=== PATIENT | male | born 1950 | race Caucasian/White ===

== ENCOUNTER 2025-01-26 23:13 | Inpatient (IN) | payer MEDICARE, OTHER, SELFPAY ==
[2025-01-26 21:09] VITALS: BP 148/72
[2025-01-26 21:23] VITALS: BP 132/70
[2025-01-26 21:24] VITALS: BMI 31.6
[2025-01-26 21:32] LABS: Hematocrit 35.0 % (39.0-52.0); Hemoglobin 13.0 g/dL (13.0-18.0); Mean Corp Hgb Conc. 37.1 g/dL (33.0-37.0); Mean Corpuscular Volume 82.7 fL (80.0-94.0); Nucleated Red Blood Cells % 0 % (-); Platelet Count 331 10^3/uL (130-400); Red Cell Dist. Width 12.0 % (11.5-14.5)
[2025-01-26 21:34] LABS: Urine Character Clear (Clear)
--- NOTE | 2025-01-26 21:35 | ED.GENMED ---
History of Present Illness
<UTE Hauser - Last Filed: 01/26/25 23:24>
General
Chief Complaint: Change in Mental Status
Source: patient
Exam Limitations: none
Time Seen by Provider: 01/26/25 21:25
Nursing documentation reviewed up to this point in time: agreed with
History of Present Illness
History of Present Illness:
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 reports patient fell asleep at 7:50 PM woke up at 8 PM very confused and
had difficulty getting his words out. She reported that his speech was clear and he is aware that he is confused. Patient presents awake alert speech is clear he tells me he feels confused and is having difficulty answering questions. He denies
any upper or lower extremity weakness. He has no focal weakness on exam. He denies any headache. He is on his third round of immunotherapy his last immunotherapy treatment was on Tuesday (4 d ago) and also had a 'sodium infusion' as his sodium
was low .
reports he had an MRI of his brain which was negative for metastasis
Phy Exam
<UTE Hauser - Last Filed: 01/26/25 23:24>
General Physical Exam
General Presentation: no apparent distress
General age: appears stated age
General Skin: warm and dry
General Habitus: normal
General Mental: alert
General Hydration: appears well hydrated
Cardiovascular Exam
Cardiovascular Exam: regular rate/rhythm, no murmur and normal peripheral pulses
Pulmonary Exam
Pulmonary Exam: lungs clear and no respiratory distress
Neurological Exam
Neurological Exam: alert and other (Confused no focal upper or lower extremity weakness)
Edd Coma Scale
Eye Opening: Spontaneous
Verbal Response: Confused
Motor Response: Obeys Commands
GCS Total Score: 14
Cerebellar
Cerebellar Function: normal finger to nose
Musculoskeletal Exam
Musculoskeletal Exam: full ROM
Skin Exam
Skin Exam: normal color and warm/dry
Psychiatric Exam
Psychiatric Exam: normal mood/affect
Course
<UTE Hauser - Last Filed: 01/26/25 23:24>
Orders/Labs/Results
Orders:
Orders
01/26/25 21:25
Bedside Glucose- Treatment ONCE
Cardiac Monitoring- Treatment ONCE
Complete Blood Count/With Diff Urgent
Comprehensive Metabolic Panel Urgent
Osmolality, Random Urine Urgent
Date Specimen was Collected: 01/26/25
Time Specimen was Collected: 21:23
Comment: ADD ON
Serum Osmolality Urgent
Comment: ADD ON
Urinalysis Reflex To Culture Urgent
Date Specimen was Collected: 01/26/25
Time Specimen was Collected: 21:23
Urine Sodium Urgent
Date Specimen was Collected: 01/26/25
Time Specimen was Collected: 21:23
Comment: ADD ON
01/26/25 21:26
CT BRAIN PERF STROKE ALERT Urgent
Comment:
Reason For Exam: confusion
CT HEAD STROKE ALERT W/o Cont Urgent
Comment:
Reason For Exam: confusion
CT HEAD/NECK ANG STROKE ALERT Urgent
Comment:
Reason For Exam: confusion
01/26/25 21:57
Troponin I Urgent
01/26/25 22:07
Add On- LAB Urgent
Tests Added?: serum osmolality
Add On- LAB Urgent
Tests Added?: urine sodium and urine osmolality
01/26/25 22:50
Admit/Transfer Patient As Directed
Co-Sign Provider:
Level of Care: Inpatient admission
Assign to:: Telemetry
Physician / Group: kyung
Diagnosis: hyponatremia
Reason for Telemetry: Arrhythmia
Date to Stop Telemetry: 01/29/25
Time to Stop Telemetry: 11:00
Reason for Hospitalization: hyponatremia
Expected length of stay greater than two midnights?: Yes
ELOS- Estimated Length of Stay in days: 2
I certify the patient meets the requirements for IP care: Yes
Code Status As Directed
Resuscitation Status: Full Code
PRN Pain Medication Management As Directed
May give lesser potent ordered pain med per pt: Yes
preference::
Protocol:: Medication orders for pain may be administered in a
manner that supports deferring to patient preference
when the pt is:
- Requesting an ordered lesser potent pain medication.
Least to most potent pain medications are defined
as: acetaminophen < NSAID < tramadol < opioids
(morphine, oxycodone, hydromorphone).
- Requesting a lesser dose of the same medication IF
ORDERED.
- Requesting a less intrusive route of administration
if both routes are prescribed by the provider (PO <
IV).
01/26/25 23:00
3% Sodium Chloride 250 ml [Sodium Chloride 3%] 250 ml IV ONCE
01/26/25 23:07
Acetaminophen [Tylenol] 650 mg PO NOW STA
01/29/25 11:00
DC Protocol for Telemetry ONCE
Abnormal Lab Results
01/26/25 01/26/25
21:25 22:01
RBC 4.23 L 10^6/uL
(4.70-6.10)
Hct 35.0 L %
(39.0-52.0)
MCHC 37.1 H g/dL
(33.0-37.0)
Absolute Monos (auto) 0.7 H 10^3/uL
(0.1-0.6)
Lymphocytes % 16.1 L %
(20.5-51.1)
Sodium 118 L* mmol/L
(135-145)
Chloride 87 L mmol/L
(98-107)
Creatinine 0.6 L mg/dL
(0.7-1.3)
Glucose 111 H mg/dl
(70-99)
Serum Osmolality 246 L mOsm/kg
(275-300)
POC Glucose 111 H mg/dl
(70-99)
01/26/25 21:25
01/26/25 21:25
Vital Signs
Initial and Last Documented VS:
Initial Vital Signs
Temp Pulse Resp BP Pulse Ox
98 F 89 20 148/72 97
01/26/25 21:09 01/26/25 21:09 01/26/25 21:09 01/26/25 21:09 01/26/25 21:09
Last Documented Vital Signs
Temp Pulse Resp BP Pulse Ox
98 F 99 16 132/70 95
01/26/25 21:09 01/26/25 22:30 01/26/25 22:30 01/26/25 21:23 01/26/25 22:30
Regional Production Manager consulted with Physician
Regional Production Manager consulted with physician?: Yes
Name of Physician Consulted: DR Patino
<Norman Spencer, DO - Last Filed: 01/26/25 22:09>
Orders/Labs/Results
Orders:
Orders
01/26/25 21:25
Bedside Glucose- Treatment ONCE
Cardiac Monitoring- Treatment ONCE
Complete Blood Count/With Diff Urgent
Comprehensive Metabolic Panel Urgent
Osmolality, Random Urine Urgent
Date Specimen was Collected: 01/26/25
Time Specimen was Collected: 21:23
Comment: ADD ON
Serum Osmolality Urgent
Comment: ADD ON
Urinalysis Reflex To Culture Urgent
Date Specimen was Collected: 01/26/25
Time Specimen was Collected: 21:23
Urine Sodium Urgent
Date Specimen was Collected: 01/26/25
Time Specimen was Collected: 21:23
Comment: ADD ON
01/26/25 21:26
CT BRAIN PERF STROKE ALERT Urgent
Comment:
Reason For Exam: confusion
CT HEAD STROKE ALERT W/o Cont Urgent
Comment:
Reason For Exam: confusion
CT HEAD/NECK ANG STROKE ALERT Urgent
Comment:
Reason For Exam: confusion
01/26/25 21:57
Troponin I Urgent
01/26/25 22:07
Add On- LAB Urgent
Tests Added?: serum osmolality
Add On- LAB Urgent
Tests Added?: urine sodium and urine osmolality
01/26/25 22:50
Admit/Transfer Patient As Directed
Co-Sign Provider:
Level of Care: Inpatient admission
Assign to:: Telemetry
Physician / Group: kyung
Diagnosis: hyponatremia
Reason for Telemetry: Arrhythmia
Date to Stop Telemetry: 01/29/25
Time to Stop Telemetry: 11:00
Reason for Hospitalization: hyponatremia
Expected length of stay greater than two midnights?: Yes
ELOS- Estimated Length of Stay in days: 2
I certify the patient meets the requirements for IP care: Yes
Code Status As Directed
Resuscitation Status: Full Code
PRN Pain Medication Management As Directed
May give lesser potent ordered pain med per pt: Yes
preference::
Protocol:: Medication orders for pain may be administered in a
manner that supports deferring to patient preference
when the pt is:
- Requesting an ordered lesser potent pain medication.
Least to most potent pain medications are defined
as: acetaminophen < NSAID < tramadol < opioids
(morphine, oxycodone, hydromorphone).
- Requesting a lesser dose of the same medication IF
ORDERED.
- Requesting a less intrusive route of administration
if both routes are prescribed by the provider (PO <
IV).
01/26/25 23:00
3% Sodium Chloride 250 ml [Sodium Chloride 3%] 250 ml IV ONCE
01/26/25 23:07
Acetaminophen [Tylenol] 650 mg PO NOW STA
01/29/25 11:00
DC Protocol for Telemetry ONCE
Abnormal Lab Results
01/26/25 01/26/25
21: 22:01
RBC 4.23 L 10^6/uL
(4.70-6.10)
Hct 35.0 L %
(39.0-52.0)
MCHC 37.1 H g/dL
(33.0-37.0)
Absolute Monos (auto) 0.7 H 10^3/uL
(0.1-0.6)
Lymphocytes % 16.1 L %
(20.5-51.1)
Sodium 118 L* mmol/L
(135-145)
Chloride 87 L mmol/L
(98-107)
Creatinine 0.6 L mg/dL
(0.7-1.3)
Glucose 111 H mg/dl
(70-99)
Serum Osmolality 246 L mOsm/kg
(275-300)
POC Glucose 111 H mg/dl
(70-99)
01/26/25 21:25
01/26/25 21:25
Vital Signs
Initial and Last Documented VS:
Initial Vital Signs
Temp Pulse Resp BP Pulse Ox
98 F 89 20 148/72 97
01/26/25 21:09 01/26/25 21:09 01/26/25 21:09 01/26/25 21:09 01/26/25 21:09
Last Documented Vital Signs
Temp Pulse Resp BP Pulse Ox
98 F 99 16 132/70 95
01/26/25 21:09 01/26/25 22:30 01/26/25 22:30 01/26/25 21:23 01/26/25 22:30
<UTE Hauser - Last Filed: 01/26/25 23:24>
MDM/Problems Addressed
Differential Diagnosis Includes:
Not limited to stroke, infection, acute electrolyte abnormality
MDM/Problems Addressed:
Patient's document is a 74-year-old male with metastatic melanoma presents for acute confusion which started at 8 PM. Patient took a brief nap for about 10 minutes and when he woke up reports patient seemed to have difficulty getting his words
out. She reports he seemed like he knew what he wanted to say but could not say the words. He did present to the ER awake alert with clear speech however was confused. He was not able to identify certain pictures. He was aware however that he
was confused. He was able to follow commands
2155: pt back from CT scan. on re-exam patient seems more improved. Seems less confused however still confused to month. He still has no other focal deficits.
Sodium found to be low at 118. does report on Tuesday his sodium was apparently low and after immunotherapy he received' a bag for low sodium.' Case discussed with nephrology who does recommend hypertonic saline. Urine osmolality and urine
sodium added in addition to serum osmolality.
Patient radiology reported CT head and vessels are negative for acute findings questionable left apical pneumonia however patient has no symptoms.
Patient will require mission to the hospitalist.
Chronic conditions affecting care:
Metastatic melanoma
<UTE Hauser - Last Filed: 01/26/25 23:24>
*Radiology
Radiology exam reviewed: radiology read reviewed
*Pulse Oximetry
SaO2: 97
Oxygen Mode of Delivery: Room air
Patient hypoxic: no
*EKG
Interpreted by ED Provider?: Yes
Interpretation: normal
Comparison EKG: no comparison EKG present
Heart Rate: 93
Ischemia: no ischemia
<Normanvasu Gatica Johanna DO - Last Filed: 01/26/25 22:09>
*Pulse Oximetry
Patient hypoxic: no
*Critical Care Note
Total Time (30-74mins, 75-104mins- exclusive of procedures): 38min
comment:
The patient was seen initially as a concern for stroke alert. He does have a history of melanoma. However he ultimately was found to have a sodium of only 118. Emergently discussing case with nephrology. Patient likely will need to be fluid
restricted. However, additional labs still pending. Lower suspicion for true neurologic event.
<UTE Hauser - Last Filed: 01/26/25 23:24>
Patient Management
Discussion with other providers: Railroad Conductor (Nephrology)
ED Attending Note
<UTE Hauser - Last Filed: 01/26/25 23:24>
-
Portions of this chart may have been created with voice recognition software.� Occasional wrong word or��sound alike� substitutions may have occurred due to the inherent limitations of voice recognition software.
<Norman Spencer DO - Last Filed: 01/26/25 22:09>
ED Attending Note
ED Attending Note:
I evaluated patient at bedside. He could not name the month but he knew his age. He describes some mild aphasia earlier but overall states he is improved significantly. CT head personally reviewed and I see no evidence of metastatic.
Discharge Plan
Departure
Patient Disposition: Admit
Date of Disposition: 01/26/25
Time of Disposition: 22:20
Admit to: Telemetry
Admit to doctor: hospitalist
Presentation/result/management discussed w/ accepting MD/DO: Hospitalist
Patient with high blood pressure during this ER visit?: Yes
Condition: Fair
Covid-19: Not Applicable
Discharge Problem:
Acute confusion, Acute hyponatremia
Interventions
Interventions:
*Risk Screen - Suicide Last Done: 01/26/25 22:37
*General Assessment Last Done: 01/26/25 21:16
*Neglect/Abuse Screening Last Done: 01/26/25 21:16
*ED- Fall Risk Assessment Last Done: 01/26/25 21:16
*ED COVID-19 Vaccine History Last Done: 01/26/25 21:16
ED- Pulmonary Assessment Last Done: 01/26/25 21:10
ED- Neurological Assessment Last Done: 01/26/25 22:24
ED- Cardiac Assessment Last Done: 01/26/25 21:10
[2025-01-26 22:02] LABS: Glucose - Point of Care 111 mg/dl (70-99)
[2025-01-26 22:04] LABS: ALT (SGPT) 36 U/L (0-50); AST (SGOT) 33 U/L (17-59); Albumin 3.8 g/dl (3.5-5.0); Alkaline Phosphatase 123 U/L (38-126); Blood Urea Nitrogen 12 mg/dl (9-20); Calcium 8.6 mg/dl (8.4-10.2); Carbon Dioxide 26 mmol/L (22-30); Chloride 87 mmol/L (98-107); Estimated Creatinine Clearance 120 ml/min; Glucose 111 mg/dl (70-99); Potassium 4.3 mmol/L (3.5-5.1); Sodium 118 mmol/L (135-145); Total Protein 6.6 g/dl (6.3-8.2); eGFR > 60.00
[2025-01-26] MEDS: SODIUM CHLORIDE 3% 250 IV (22:43)
[2025-01-26 22:52] LABS: Troponin I < 0.012 ng/ml
[2025-01-26 23:00] VITALS: BP 127/68
--- NOTE | 2025-01-26 23:03 | HPS.HSE ---
Family Physician
-
Family Physician: Matias Hinton
Chief Complaint
-
confusion
History of Present Illness
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
anxiety/depression, hyperlipidemia, glaucoma presenting for confusion. As per patient fell asleep at 7:50 PM and woke up at 8 PM very confused and had difficulty getting his words out. She reported his speech was clear and he was aware that
he was confused. Patient presents awake alert with clear speech and feels confused and is having difficulty answering questions. Denies upper or lower extremity weakness. No headache. No blurry vision. No numbness or tingling or focal weakness
or dizziness. He is having increased urinary frequency today.
He does not drink fluids excessively. Perhaps 16 ounce water bottle per day. His oral intake has been quite low recently.
He had some diarrhea today which is resolved after taking Imodium. No abdominal pain.
No chest pain or shortness of breath.
His last immunotherapy treatment was 4 days ago. He was found to have hyponatremia at that time with sodium of 125 and received 'sodium infusion' due to hyponatremia. He did not have sodium checked afterwards.
states that he had an MRI of the brain which was negative for metastases.
He drinks 1 or 2 glasses of wine per day. Denies smoking.
No pertinent family history.
Medical History
Past Medical History
Past Medical History: Reports Other (metastatic melanoma with metastasis to heart, stomach and lungs status post mediastinal lymph node resection on immunotherapy Opdivo and Yervoy, thyroid cancer status post thyroid resection, hypertension,
anxiety/depression, hyperlipidemia, glaucoma)
Past Surgical History: Reports None
Social History
Tobacco: Non-smoker
Alcohol: Occasional
Drug: None
Family History
Family History: Not pertinent
Allergies / Home Medications
Allergies reflects when Allergies were last updated in [employer].
Home Medications with original date entered in [employer]
Allergy/Medication List:
Allergies
Allergy/AdvReac Type Severity Reaction Status Date / Time
No Allergy Information Allergy Verified 01/26/25 22:43
Available
Home Medications
amlodipine 5 mg tablet 5 mg PO DAILY 01/26/25
atorvastatin 20 mg tablet 20 mg PO DAILY 01/26/25
clonazepam 1 mg tablet 1 mg PO BID PRN anxiety 01/26/25
latanoprost 0.005 % eye drops 1 drp ophthalmic (eye) DAILY 01/26/25
levothyroxine 137 mcg/mL oral solution 137 mcg PO DAILY 01/26/25
mometasone 0.1 % topical cream 1 applic topical BID 01/26/25
ondansetron 4 mg disintegrating tablet 4 mg PO Q8H PRN nausea 01/26/25
trazodone 50 mg tablet 50 mg PO HS 01/26/25
Review of Systems
-
History Source: Patient
A 12 point ROS was completed and negative except as noted: Yes
Constitutional: Reports No Symptoms
EENT: Reports No Symptoms
Respiratory: Reports No Symptoms
Cardiac: Reports No Symptoms
Abdomen/GI: Reports No Symptoms
: Reports No Symptoms
Musculoskeletal: Reports No Symptoms
Skin: Reports No Symptoms
Neurological: Reports No Symptoms
Endocrine: Reports No Symptoms
Hematologic/Lymphatic: Reports No Symptoms
Psych: Reports No Symptoms
Physical Exam
Vital Signs
Vital Signs
Temp Pulse Resp BP Pulse Ox
98 F 99 16 132/70 95
01/26/25 21:09 01/26/25 22:30 01/26/25 22:30 01/26/25 21:23 01/26/25 22:30
Physical Exam
General: Well Developed, Well Nourished and No Apparent Distress
HEENT: NormoCephalic, Moist mucous membranes and Atraumatic
Respiratory: Clear
Cardiac: S1/S2 and Regular Rhythm; No Murmur or Rub
GI: Soft, Non Tender, Non Distended and Normal Bowel Sounds; No Organomegaly
Rectal: Deferred by Provider
Musculoskeletal: No Clubbing, No Cyanosis and No Edema
Skin: No Rash
Neuro: Nonfocal/grossly intact
Laboratory Results
-
01/26/25 21:25
01/26/25 21:25
Laboratory Results
Total Bilirubin 0.6 mg/dl (0.2-1.3) 01/26/25 21:25
AST 33 U/L (17-59) 01/26/25 21:25
ALT 36 U/L (0-50) 01/26/25 21:25
Alkaline Phosphatase 123 U/L (38-126) 01/26/25 21:25
Troponin I < 0.012 ng/ml 01/26/25 21:57
Data Reviewed
-
Lab Data: Labs Reviewed by me
Old Records: Reviewed
Impression/Plan
-
IMPRESSION:
PLAN:
# Worsening symptomatic hyponatremia etiology could be multifactorial secondary to Opdivo/Yervoy, decreased solute intake, SIADH from malignancy
-Mental status currently significantly improved, no focal neurological deficits
- Sodium 118, was 125 four days prior before he received normal saline suggesting SIADH
-CT head and CTA head and neck without any abnormalities as per [facility]
- Urine sodium of 38, urine osmolality of 386
-40 ounce fluid restriction
- Nephrology consulted recommended hypertonic saline, recheck BMP in 4 hours
- Check TSH, a.m. cortisol, uric acid
# Left upper lobe consolidation, mild surrounding groundglass opacities in left upper lobe
- As seen on [facility] radiology report, not correlating clinically
Metastatic melanoma with metastasis to heart, stomach and lung status post mediastinal lymph node resection
- On immunotherapy with Opdivo and Yervoy
Essential hypertension
- Continue amlodipine
Hyperlipidemia
- Continue statin
Thyroid cancer status post thyroid resection
- Continue levothyroxine
Anxiety/depression
- Continue clonazepam, trazodone
Elevated intraocular pressure
- Continue latanoprost
Full code
DVT prophylaxis�heparin
Regular diet
[2025-01-26] MEDS: TYLENOL 650 MG PO (23:22)
[2025-01-27] VITALS (8 sets, daily range): BP systolic 112–143; BP diastolic 64–74; BMI 30.6
[2025-01-27] MEDS: SYNTHROID 137 MCG PO (05:21)
[2025-01-27] MEDS: TYLENOL 650 MG PO (05:21)
[2025-01-27 05:54] LABS: Hematocrit 30.6 % (39.0-52.0); Hemoglobin 11.3 g/dL (13.0-18.0); Mean Corp Hgb Conc. 36.9 g/dL (33.0-37.0); Mean Corpuscular Volume 84.1 fL (80.0-94.0); Nucleated Red Blood Cells % 0 % (-); Platelet Count 312 10^3/uL (130-400); Red Cell Dist. Width 11.7 % (11.5-14.5)
[2025-01-27 06:28] LABS: ALT (SGPT) 27 U/L (0-50); AST (SGOT) 27 U/L (17-59); Albumin 3.1 g/dl (3.5-5.0); Alkaline Phosphatase 114 U/L (38-126); Blood Urea Nitrogen 8 mg/dl (9-20); Calcium 7.8 mg/dl (8.4-10.2); Carbon Dioxide 23 mmol/L (22-30); Chloride 92 mmol/L (98-107); Estimated Creatinine Clearance 118 ml/min; Glucose 94 mg/dl (70-99); Potassium 4.2 mmol/L (3.5-5.1); Sodium 119 mmol/L (135-145); Total Protein 5.5 g/dl (6.3-8.2); Uric Acid 2.8 mg/dl (3.5-8.5); eGFR > 60.00
[2025-01-27 06:52] LABS: Cortisol, Random 0.4 ug/dl
--- NOTE | 2025-01-27 08:05 | W.PN.HOSP.TC ---
Today's Communication/Plan
-
Monitor BMP.
Monitor mental status.
Assessment / Plan
Assessment / Plan
Impression:
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 Found to
have hyponatremia with�sodium of 118 seen by nephro nephrology. CT head was concerning of brain mass,�patient had MRI brain at [facility] on 12/13 which shows no brain mets obtained MRI brain with and without contrast showed Enhancing mass within the
lateral right orbit, arising in the region of the lateral rectus. This is suspicious for intraorbital metastatic lesion. This is however nonspecific, and other causes for intraorbital masses are considered, such as hemangioma. Comparison to any
obtainable previous examinations is advised.
Assessment/plan:
Acute metabolic encephalopathy.
Patient presented with confusion.
Possible secondary to hyponatremia.
CT head shows Enhancing mass within the lateral aspect of the right orbit, arising in the region of the lateral rectus muscle. In the clinical history, metastatic disease would be a consideration. This finding is however nonspecific, and other
causes for intraorbital mass such as hemangioma are also possible. If a previous imaging examinations including the orbits can be obtained, comparison would be helpful
patient had MRI brain at [facility] on 12/13 which shows no brain mets.
MRI brain with and without contrast showed Enhancing mass within the lateral right orbit, arising in the region of the lateral rectus. This is suspicious for intraorbital metastatic lesion. This is however nonspecific, and other causes for
intraorbital masses are considered, such as hemangioma. Comparison to any obtainable previous examinations is advised.
- Discussed in detail with radiology, discussed with patient and at bedside, images need to be compared to previous MRI on December 13, will be provided with CD with MRI images and follow-up with oncology at [facility] for
further recommendations.
Symptomatic hyponatremia
etiology could be multifactorial secondary to Opdivo/Yervoy, decreased solute intake, SIADH from malignancy
-Mental status currently significantly improved, no focal neurological deficits
- Sodium 118, on presentation.
Appreciate nephrology input.
BMP every 6 hours
Left upper lobe consolidation, mild surrounding groundglass opacities in left upper lobe
- As seen on [facility] radiology report, not correlating clinically
Metastatic melanoma with metastasis to heart, stomach and lung status post mediastinal lymph node resection
- On immunotherapy with Opdivo and Yervoy
Essential hypertension
- Continue amlodipine
Hyperlipidemia
- Continue statin
Thyroid cancer status post thyroid resection
- Continue levothyroxine
Anxiety/depression
- Continue clonazepam, trazodone
Elevated intraocular pressure
- Continue latanoprost
CODE STATUS: Full code
DVT prophylaxis: SCDs
Diet: Regular diet
Family communication: Discussed with at bedside
Disposition: Continue to monitor BMP.
Total time spent on today's encounter was 65 minutes which included time spent in counseling the patient/family regarding diagnosis and treatment plan as listed above, goals of care, and symptom management. Case was discussed with nursing staff,
specialists, and care coordinators/case management. All labs and imaging personally reviewed by me. Remainder the time spent in detailed review of previous records, lab data, imaging, and other medical provider documentation.
Anticipated Discharge: 24 - 48 hours
Subjective/Interval History
-
Date of Service: January 27, 2025
Patient seen and examined at bedside, denies any chest pain or shortness of breath, still not fully oriented, denied no abdominal pain, no nausea, no vomiting, no diarrhea or constipation.
Complaining of oral cavity pain, gingival swelling.
Objective Data
-
Labs:
Laboratory Results
01/26/25 01/27/25 01/27/25
21:25 03:00 05:08
WBC 7.6 5.7
Hgb 13.0 11.3 L
Hct 35.0 L 30.6 L
Plt Count 331 312
Sodium 118 L* Cancelled 119 L*
Potassium 4.3 Cancelled 4.2
Chloride 87 L Cancelled 92 L
Carbon Dioxide 26 Cancelled 23
BUN 12 Cancelled 8 L
Creatinine 0.6 L Cancelled 0.5 L
Glucose 111 H Cancelled 94
Calcium 8.6 Cancelled 7.8 L
Total Bilirubin 0.6 0.7
AST 33 27
ALT 36 27
Alkaline Phosphatase 123 114
01/27/25
09:00
WBC
Hgb
Hct
Plt Count
Sodium Pending
Potassium Pending
Chloride Pending
Carbon Dioxide Pending
BUN Pending
Creatinine Pending
Glucose Pending
Calcium Pending
Total Bilirubin
AST
ALT
Alkaline Phosphatase
Vital Signs:
Vital Signs
Temp Pulse Resp BP Pulse Ox
98.9 F 80 18 120/65 95
01/27/25 07:00 01/27/25 07:00 01/27/25 07:00 01/27/25 07:00 01/27/25 07:00
Physical Exam
-
General: Well Developed, Well Nourished, No Apparent Distress and Comfortable
HEENT: Normocephalic, Atraumatic, Moist Mucous Membranes, Thrush (Thrush with gingival swelling), No Ptosis, PERRLA and Nose Appears Normal
Respiratory: Clear to Auscultation and Non Labored Respirations
Cardiac: Regular Rhythm and S1/S2
Breast: Deferred by me
GI: Soft, Nontender, Nondistended and Normal Bowel Sounds
Genito-urinary: No Costovertebral Tender
Musculoskeletal: No Clubbing, No Cyanosis and No Edema
Skin: Warm
Neuro: Awake and Alert
Psych: Calm
Data Reviewed
-
Diagnostic Radiology: Image personally visualized and interpreted and Report Reviewed by me
CT Scan: Image personally visualized and interpreted and Report Reviewed by me
Ultrasound: Image personally visualized and interpreted and Report Reviewed by me
MRI: Image personally visualized and interpreted and Report Reviewed by me
Medical Tests (Nuc Med, Echo etc): Image personally visualized and interpreted and Report Reviewed by me
Labs: Labs Reviewed by me
Old Records: Reviewed
[2025-01-27] MEDS: NORVASC 5 MG PO (08:32)
[2025-01-27] MEDS: XALATAN OPHTHALMIC SOLUTION 1 DROP BOTH EYES (08:32)
[2025-01-27] MEDS: LIPITOR 20 MG PO (08:32)
[2025-01-27 09:25] LABS: Blood Urea Nitrogen 8 mg/dl (9-20); Calcium 8.2 mg/dl (8.4-10.2); Carbon Dioxide 24 mmol/L (22-30); Chloride 91 mmol/L (98-107); Estimated Creatinine Clearance 118 ml/min; Glucose 96 mg/dl (70-99); Potassium 4.3 mmol/L (3.5-5.1); Sodium 121 mmol/L (135-145); eGFR > 60.00
[2025-01-27] MEDS: KLONOPIN 0.5 MG PO ×2 (12:29→20:41)
--- NOTE | 2025-01-27 13:05 | CM ---
Patient seen at bedside with
IA completed
Dx: hyponatremia
MRI completed today
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
glaucoma
Lives in a 2 story home with , 1 step to enter, flight of steps to bedroom/bathroom, powder room on 1st floor
PLOF: Independent
Denies DME
Has Had [facility] in past, denies Rehab
PCP: Jamaal Salcedo
Pharmacy: [facility]
PLAN: TBD, follow hospital progress, CM to follow for needs
[2025-01-27 14:38] LABS: Blood Urea Nitrogen 9 mg/dl (9-20); Calcium 8.1 mg/dl (8.4-10.2); Carbon Dioxide 26 mmol/L (22-30); Chloride 91 mmol/L (98-107); Estimated Creatinine Clearance 118 ml/min; Glucose 130 mg/dl (70-99); Potassium 3.9 mmol/L (3.5-5.1); Sodium 121 mmol/L (135-145); eGFR > 60.00
--- NOTE | 2025-01-27 14:54 | W.CON.NEPH ---
Consultation
-
Date/Time Consultation Requested: January 26, 2025 at 2300 hrs.
Date/Time Consultation Performed: January 27, 2025 at 12 PM
Requesting Provider: Sarah Adhikari
Performing Provider: Dr. Gamez
Reason for Consultation: Hyponatremia
Medical History
-
Chief Complaint: Hyponatremia
History of Present Illness:
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
anxiety/depression, hyperlipidemia, glaucoma presenting for confusion.
Renal consult for sodium of 118.
The patient is alert and awake his was at the bedside helped with history he was told to drink water when he had a sodium of 125 earlier in the week per oncology when he was getting his infusion. He has been drinking a lot of Gatorade. He has
had decreased p.o. intake with inability to swallow because of pain in his gums from what he was told is from his treatment. Also has oral thrush
Past Medical History
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
hyperlipidemia, glaucoma
Social History
Tobacco: Non-Smoker
Alcohol: Daily
Family History
Family History: Not Pertinent
Allergies / Home Medications
Allergy/AdvReac Type Severity Reaction Status Date / Time
No Allergy Information Allergy Verified 01/26/25 22:43
Available
�Medication �Instructions �Recorded �Confirmed �Type
amlodipine 5 mg tablet 5 mg PO DAILY Blood Pressure 01/26/25 01/26/25 History
atorvastatin 20 mg tablet 20 mg PO DAILY High Cholesterol 01/26/25 01/26/25 History
clonazepam 1 mg tablet 1 mg PO BID PRN anxiety 01/26/25 01/26/25 History
latanoprost 0.005 % eye drops 1 drp BOTH EYES HS Eye Condition 01/26/25 01/27/25 History
levothyroxine 137 mcg/mL oral 137 mcg PO DAILY@06 Thyroid 01/26/25 01/27/25 History
solution
mometasone 0.1 % topical cream 1 applic topical BID 01/26/25 01/26/25 History
Anti-Inflammatory
ondansetron 4 mg disintegrating 4 mg PO Q8H PRN nausea 01/26/25 01/26/25 History
tablet
trazodone 50 mg tablet 50 mg PO HS Sleep 01/26/25 01/26/25 History
Review of Systems
-
Decreased p.o. intake no chest pain or shortness of breath
All other systems: Negative unless noted
Physical Exam
Vital Signs
Vital Signs
Temp Pulse Resp BP Pulse Ox
98.4 F 86 17 143/70 94
01/27/25 11:00 01/27/25 11:00 01/27/25 11:00 01/27/25 11:00 01/27/25 11:00
Lab Results
WBC 5.7 10^3/uL (4.8-10.8) 01/27/25 05:08
RBC 3.64 10^6/uL (4.70-6.10) L 01/27/25 05:08
Hgb 11.3 g/dL (13.0-18.0) L 01/27/25 05:08
Hct 30.6 % (39.0-52.0) L 01/27/25 05:08
Plt Count 312 10^3/uL (130-400) 01/27/25 05:08
eGFR > 60.00 01/27/25 14:04
Albumin 3.1 g/dl (3.5-5.0) L 01/27/25 05:08
Physical Exam
General no acute distress
HEENT no cephalic atraumatic extraocular muscle intact no scleral icterus no JVD neck supple
lungs clear to auscultation bilateral
heart regular S1-S2 positive
abdomen soft nontender positive bowel sounds
extremities no edema pulses present bilateral
Neurologically nonfocal alert and oriented x 3
Skin no lesions no abrasions no petechiae
Psych normal affect no bizarre behavior
Data Reviewed
-
MRI: Image Personally Visualized and interpreted
Labs: Labs Reviewed by me, Discussed with Physician, Discussed with Nurse, Discussed with Patient and Discussed with Family
Assessment/Plan
-
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
anxiety/depression, hyperlipidemia, glaucoma presenting for confusion.
Renal consult for sodium of 118.
The patient is alert and awake his was at the bedside helped with history he was told to drink water when he had a sodium of 125 earlier in the week per oncology when he was getting his infusion. He has been drinking a lot of Gatorade.
Impression.
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 Opdivo commonly associated with hyponatremia
Metastatic melanoma for possible metastatic lesion on MRI.
Thyroid cancer.
Oral thrush
Plan.
Status post 3% saline corrected to 121.
Restart hypertonic saline at 30 cc/h
Recheck labs this evening
Nystatin for thrush to help with the p.o. intake
Increase protein
[2025-01-27] MEDS: SODIUM CHLORIDE 3% 250 IV (15:13)
[2025-01-27] MEDS: MYCOSTATIN ORAL SUSPENSION 10 ML PO ×2 (17:00→20:41)
[2025-01-27 20:55] LABS: Blood Urea Nitrogen 7 mg/dl (9-20); Calcium 8.0 mg/dl (8.4-10.2); Carbon Dioxide 24 mmol/L (22-30); Chloride 94 mmol/L (98-107); Estimated Creatinine Clearance 118 ml/min; Glucose 116 mg/dl (70-99); Potassium 4.1 mmol/L (3.5-5.1); Sodium 122 mmol/L (135-145); eGFR > 60.00
[2025-01-28 03:00] VITALS: BP 108/52
[2025-01-28 03:11] LABS: Blood Urea Nitrogen 8 mg/dl (9-20); Calcium 8.1 mg/dl (8.4-10.2); Carbon Dioxide 24 mmol/L (22-30); Chloride 96 mmol/L (98-107); Estimated Creatinine Clearance 118 ml/min; Glucose 105 mg/dl (70-99); Potassium 4.3 mmol/L (3.5-5.1); Sodium 123 mmol/L (135-145); eGFR > 60.00
[2025-01-28] MEDS: SYNTHROID 137 MCG PO (06:11)
[2025-01-28 07:12] VITALS: BP 122/72
--- NOTE | 2025-01-28 08:17 | W.PN.HOSP.TC ---
Today's Communication/Plan
-
See plan
Assessment / Plan
Assessment / Plan
Physical Exam
General: Well Developed, Well Nourished, No Apparent Distress and Comfortable
HEENT: Normocephalic, Atraumatic, Moist Mucous Membranes, Thrush (Thrush with gingival swelling), No Ptosis, PERRLA and Nose Appears Normal
Respiratory: Clear to Auscultation and Non Labored Respirations
Cardiac: Regular Rhythm and S1/S2
Breast: Deferred by me
GI: Soft, Nontender, Nondistended and Normal Bowel Sounds
Genito-urinary: No Costovertebral Tender
Musculoskeletal: No Clubbing, No Cyanosis and No Edema
Skin: Warm
Neuro: Awake and Alert
Psych: Calm
Impression:
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 Found to
have hyponatremia with�sodium of 118 seen by nephro nephrology. CT head was concerning of brain mass,�patient had MRI brain at [facility] on 12/13 which shows no brain mets obtained MRI brain with and without contrast showed Enhancing mass within the
lateral right orbit, arising in the region of the lateral rectus. This is suspicious for intraorbital metastatic lesion. This is however nonspecific, and other causes for intraorbital masses are considered, such as hemangioma. Comparison to any
obtainable previous examinations is advised.
Assessment/plan:
Acute metabolic encephalopathy.
Patient presented with confusion.
Possible secondary to hyponatremia.
CT head shows Enhancing mass within the lateral aspect of the right orbit, arising in the region of the lateral rectus muscle. In the clinical history, metastatic disease would be a consideration. This finding is however nonspecific, and other
causes for intraorbital mass such as hemangioma are also possible. If a previous imaging examinations including the orbits can be obtained, comparison would be helpful
patient had MRI brain at [facility] on 12/13/24 which shows no brain mets.
MRI brain with and without contrast showed Enhancing mass within the lateral right orbit, arising in the region of the lateral rectus. This is suspicious for intraorbital metastatic lesion. This is however nonspecific, and other causes for
intraorbital masses are considered, such as hemangioma. Comparison to any obtainable previous examinations is advised.
- Discussed in detail with radiology, discussed with patient and at bedside, images need to be compared to previous MRI on December 13, will be provided with CD with MRI images and follow-up with oncology at [facility] for
further recommendations.
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
-AM Cortisol level 0.4
-Hydrocortisone started on 01/28/25
Symptomatic hyponatremia
etiology could be multifactorial secondary to Opdivo/Yervoy, decreased solute intake, SIADH from malignancy
-Mental status currently significantly improved, no focal neurological deficits
- Sodium 118, on presentation.
Appreciate nephrology input.
BMP every 6 hours or as recommended by nephrology
Left upper lobe consolidation, mild surrounding groundglass opacities in left upper lobe
- As seen on vision radiology report, not correlating clinically
Metastatic melanoma with metastasis to heart, stomach and lungs status post mediastinal lymph node resection on immunotherapy
- On immunotherapy with Opdivo and Yervoy
Essential hypertension
- Continue amlodipine
Hyperlipidemia
- Continue statin
Thyroid cancer status post thyroid resection
- Continue levothyroxine
Anxiety/depression
- Continue clonazepam, trazodone
Elevated intraocular pressure
- Continue latanoprost
CODE STATUS: Full code
DVT prophylaxis: SCDs. Lovenox (I communicated on 01/28/[address] Hedrick and in the setting of patient's Brain MRI findings, he agreed that it is okay to continue chemical DVT prophylaxis)
Diet: Regular diet
Family communication: Discussed with at bedside
Disposition: Continue to monitor BMP.
On 01/28/25, I spoke in-person with patient's extensively.
Anticipated Discharge: 24 - 48 hours
Subjective/Interval History
-
Date of Service: January 28, 2025
Patient was seen and examined. He denied any new complaints, his says his insight has been a bit off.
Objective Data
-
Labs:
Laboratory Results
01/27/25 01/28/25 01/28/25
20:25 02:40 06:00
WBC Pending
Hgb Pending
Hct Pending
Plt Count Pending
Sodium 122 L 123 L
Potassium 4.1 4.3
Chloride 94 L 96 L
Carbon Dioxide 24 24
BUN 7 L 8 L
Creatinine 0.6 L 0.6 L
Glucose 116 H 105 H
Calcium 8.0 L 8.1 L
01/28/25
08:00
WBC
Hgb
Hct
Plt Count
Sodium Pending
Potassium Pending
Chloride Pending
Carbon Dioxide Pending
BUN Pending
Creatinine Pending
Glucose Pending
Calcium Pending
Vital Signs:
Vital Signs
Temp Pulse Resp BP Pulse Ox
98.7 F 90 16 122/72 93
01/28/25 07:12 01/28/25 07:12 01/28/25 07:12 01/28/25 07:12 01/28/25 07:12
I&O
01/27/25 01/28/25 01/29/25
06:59 06:59 06:59
Intake Total 600 / 600
Output Total 450 / 450
Balance 150 / 150
[2025-01-28] MEDS: NORVASC 5 MG PO (08:25)
[2025-01-28] MEDS: MYCOSTATIN ORAL SUSPENSION 10 ML PO ×4 (08:26→21:04)
[2025-01-28] MEDS: LIPITOR 20 MG PO (08:26)
[2025-01-28] MEDS: XALATAN OPHTHALMIC SOLUTION 1 DROP BOTH EYES (08:27)
[2025-01-28 08:58] LABS: Hematocrit 32.2 % (39.0-52.0); Hemoglobin 11.7 g/dL (13.0-18.0); Mean Corp Hgb Conc. 36.3 g/dL (33.0-37.0); Mean Corpuscular Volume 85.4 fL (80.0-94.0); Platelet Count 284 10^3/uL (130-400); Red Cell Dist. Width 11.9 % (11.5-14.5)
[2025-01-28 09:32] LABS: Blood Urea Nitrogen 7 mg/dl (9-20); Calcium 7.8 mg/dl (8.4-10.2); Carbon Dioxide 23 mmol/L (22-30); Chloride 95 mmol/L (98-107); Estimated Creatinine Clearance 118 ml/min; Glucose 105 mg/dl (70-99); Potassium 4.1 mmol/L (3.5-5.1); Sodium 124 mmol/L (135-145); eGFR > 60.00
[2025-01-28 11:12] VITALS: BP 128/69
[2025-01-28] MEDS: SODIUM CHLORIDE 3% 250 IV (11:41)
--- NOTE | 2025-01-28 13:57 | CON.ONC ---
Impression
Impression
Metastatic melanoma, on immunotherapy, reportedly Opdivo and Yervoy
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
Plan
Plan
From my reading, the cortisol level of 0.4 is essentially diagnostic of adrenal insufficiency. I have begun him on hydrocortisone 100 mg IV bolus, followed by 50 mg twice daily. He can be converted to a physiologic regimen within the next day or
so.
I am not sure what to make of the small mass seen in the orbit. His tells me that the [facility] is comparing our study with a study done several weeks ago. No acute intervention is necessary.
Patient History
History of Present Illness
Consult from Dr. Napier regarding melanoma
This 74-year-old man was admitted with weakness and confusion. He has been undergoing treatment at the [facility] with immunotherapy, reportedly Opdivo and Yervoy. He had a second treatment about a week ago. His sodium at that
time was noted to be 125, and he was given a small bolus of saline. He did all right until this weekend when he became increasingly weak and confused. His sodium was 118. He has been treated with normal saline, and at x 3% saline. A random
cortisol, drawn at 5 AM, was very low at 0.4. He has had essentially his normal intake and outtake over the last few days. Besides the weakness and confusion, he has noted no other changes in his health.
Past-Medical/Surgical History
He has a history of thyroid cancer treated surgically.
Family history is noncontributory.
Social history is unremarkable.
Patient Medication
�Medication �Instructions �Recorded �Confirmed �Last Taken �Type
amlodipine 5 mg tablet 5 mg PO DAILY Blood Pressure 01/26/25 01/26/25 Unknown History
atorvastatin 20 mg tablet 20 mg PO DAILY High Cholesterol 01/26/25 01/26/25 Unknown History
clonazepam 1 mg tablet 1 mg PO BID PRN anxiety 01/26/25 01/26/25 Unknown History
latanoprost 0.005 % eye drops 1 drp BOTH EYES HS Eye Condition 01/26/25 01/27/25 Unknown History
levothyroxine 137 mcg/mL oral 137 mcg PO DAILY@06 Thyroid 01/26/25 01/27/25 Unknown History
solution
mometasone 0.1 % topical cream 1 applic topical BID 01/26/25 01/26/25 Unknown History
Anti-Inflammatory
ondansetron 4 mg disintegrating 4 mg PO Q8H PRN nausea 01/26/25 01/26/25 Unknown History
tablet
trazodone 50 mg tablet 50 mg PO HS Sleep 01/26/25 01/26/25 Unknown History
Active Medications
Generic Name Dose Route Start Last Admin
Trade Name Freq PRN Reason Stop Dose Admin
Acetaminophen 650 mg 01/27/25 04:55 01/27/25 05:21
Acetaminophen 325 Mg Tablet PO 02/24/25 04:54 650 mg
Q4HPRN PRN Administration
headache,mild pain,fever>100.4
Albuterol 1 puff 01/27/25 20:26 01/27/25 20:41
Albuterol Hfa [90 Mcg/Dose] Inhaler INH 1 puff
R QID PRN Administration
SOB
Protocol
Amlodipine Besylate 5 mg 01/27/25 08:00 01/28/25 08:25
Amlodipine 5 Mg Tablet PO 02/24/25 07:59 5 mg
DAILY PENELOPE Administration
Atorvastatin Calcium 20 mg 01/27/25 08:00 01/28/25 08:26
Atorvastatin (Lipitor) 20 Mg Tablet PO 02/24/25 07:59 20 mg
DAILY PENELOPE Administration
Clonazepam 0.5 mg 01/27/25 12:17 01/27/25 20:41
Clonazepam 1 Mg Tablet PO 02/24/25 12:16 0.5 mg
BID PRN Administration
anxiety
Heparin Sodium 5,000 units 01/27/25 08:00 01/27/25 08:31
Heparin 5,000 Units/Ml 1 Ml Vial SC 02/24/25 07:59 Not Given
On Hold: 01/27/25 08:05 Q12 PENELOPE
Hydrocortisone Sodium Succinate 50 mg 01/28/25 20:00
Hydrocortisone Sodium Succinate 100 Mg/2 Ml Vial IV 02/25/25 19:59
Q12 PENELOPE
Sodium Chloride 250 mls @ 30 mls/hr 01/28/25 11:04 01/28/25 11:41
Sodium Chloride 3% IV 01/28/25 19:23 250 mls
ONCE ONE Administration
Latanoprost 1 drop 01/27/25 08:00 01/28/25 08:27
Latanoprost 0.005% (Ophthalmic Solution) 2.5 Ml Bottle BOTH EYES 02/24/25 07:59 1 drop
DAILY PENELOPE Administration
Levothyroxine Sodium 137 mcg 01/27/25 06:00 01/28/25 06:11
Levothyroxine 137 Mcg Tablet PO 02/24/25 05:59 137 mcg
DAILY @ 0600 PENELOPE Administration
Nystatin 10 ml 01/27/25 18:00 01/28/25 12:56
Nystatin Oral Suspension 500,000 Units/5 Ml PO 02/24/25 17:59 10 ml
QID PENELOPE Administration
Ondansetron HCl 4 mg 01/27/25 01:36
Ondansetron 4 Mg (Orally-Disintegrating) Tablet PO 02/24/25 01:35
Q8H PRN
nausea
Sodium Chloride 0 flush 01/27/25 02:00
Sodium Chloride 0.9% (Flush) Syringe IV 02/24/25 01:59
PER PROTOCOL PENELOPE
Review of Systems
-
All Other Systems: Reviewed and Negative
Physical Exam
-
Physical examination shows the patient to be in no acute distress.
HEENT exam is unremarkable.
There are no palpable nodes.
Chest is clear.
The heart is regular with no murmur or gallop.
The abdomen is soft and nontender with no organomegaly or masses.
Extremities are unremarkable.
Neurologic is grossly intact.
Labs
Lab Results
WBC 5.2 10^3/uL (4.8-10.8) 01/28/25 08:21
RBC 3.77 10^6/uL (4.70-6.10) L 01/28/25 08:21
Hgb 11.7 g/dL (13.0-18.0) L 01/28/25 08:21
Hct 32.2 % (39.0-52.0) L 01/28/25 08:21
MCV 85.4 fL (80.0-94.0) 01/28/25 08:21
MCH 31.0 pg (27.0-31.0) 01/28/25 08:21
MCHC 36.3 g/dL (33.0-37.0) 01/28/25 08:21
RDW 11.9 % (11.5-14.5) 01/28/25 08:21
Plt Count 284 10^3/uL (130-400) 01/28/25 08:21
MPV 9.8 fL (7.4-10.4) 01/28/25 08:21
Abs Immat Gran (auto) 0.0 10^3/uL (0-0.05) 01/27/25 05:08
Absolute Neuts (auto) 3.5 10^3/uL (1.4-6.5) 01/27/25 05:08
Absolute Lymphs (auto) 1.1 10^3/uL (1.2-3.4) L 01/27/25 05:08
Absolute Monos (auto) 0.7 10^3/uL (0.1-0.6) H 01/27/25 05:08
Absolute Eos (auto) 0.3 10^3/uL (0-0.7) 01/27/25 05:08
Absolute Basos (auto) 0.1 10^3/uL (0-0.2) 01/27/25 05:08
Immature Gran % 0.4 % (0-0.5) 01/27/25 05:08
Neutrophils % 62.1 % (42.2-75.2) 01/27/25 05:08
Lymphocytes % 19.2 % (20.5-51.1) L 01/27/25 05:08
Monocytes % 12.7 % (1.7-9.3) H 01/27/25 05:08
Eosinophils % 4.4 % (0-6) 01/27/25 05:08
Basophils % 1.2 % (0-2) 01/27/25 05:08
Creatinine 0.6 mg/dL (0.7-1.3) L 01/28/25 08:21
Vital Signs
Vital Signs
Temp Pulse Resp BP Pulse Ox
98.9 F 85 17 128/69 93
01/28/25 11:12 01/28/25 11:12 01/28/25 11:12 01/28/25 11:12 01/28/25 11:12
[2025-01-28] MEDS: SOLU-CORTEF 100 MG IV (14:51)
[2025-01-28 14:55] VITALS: BP 132/52
[2025-01-28 18:22] LABS: Blood Urea Nitrogen 9 mg/dl (9-20); Calcium 8.1 mg/dl (8.4-10.2); Carbon Dioxide 23 mmol/L (22-30); Chloride 102 mmol/L (98-107); Estimated Creatinine Clearance 118 ml/min; Glucose 133 mg/dl (70-99); Potassium 4.4 mmol/L (3.5-5.1); Sodium 128 mmol/L (135-145); eGFR > 60.00
[2025-01-28] MEDS: LOVENOX 40 MG SC (18:24)
[2025-01-28 19:10] VITALS: BP 114/60
[2025-01-28] MEDS: KLONOPIN 0.5 MG PO (21:04)
[2025-01-28] MEDS: SOLU-CORTEF 50 MG IV (21:04)
[2025-01-28 22:09] LABS: Blood Urea Nitrogen 10 mg/dl (9-20); Calcium 8.3 mg/dl (8.4-10.2); Carbon Dioxide 23 mmol/L (22-30); Chloride 97 mmol/L (98-107); Estimated Creatinine Clearance 118 ml/min; Glucose 224 mg/dl (70-99); Potassium 4.5 mmol/L (3.5-5.1); Sodium 124 mmol/L (135-145); eGFR > 60.00
[2025-01-28] MEDS: MAGIC OR MIRACLE MOUTHWASH 5 ML PO (22:18)
[2025-01-28 23:28] VITALS: BP 98/48
[2025-01-29 03:15] VITALS: BP 137/81
[2025-01-29 05:46] LABS: Hematocrit 32.9 % (39.0-52.0); Hemoglobin 12.0 g/dL (13.0-18.0); Mean Corp Hgb Conc. 36.5 g/dL (33.0-37.0); Mean Corpuscular Volume 85.0 fL (80.0-94.0); Platelet Count 279 10^3/uL (130-400); Red Cell Dist. Width 11.9 % (11.5-14.5)
[2025-01-29] MEDS: SYNTHROID 137 MCG PO (06:12)
[2025-01-29 06:30] LABS: Blood Urea Nitrogen 12 mg/dl (9-20); Calcium 8.4 mg/dl (8.4-10.2); Carbon Dioxide 23 mmol/L (22-30); Chloride 100 mmol/L (98-107); Estimated Creatinine Clearance 118 ml/min; Glucose 150 mg/dl (70-99); Potassium 4.9 mmol/L (3.5-5.1); Sodium 128 mmol/L (135-145); eGFR > 60.00
[2025-01-29 07:00] VITALS: BP 106/58
--- NOTE | 2025-01-29 07:27 | W.PN.HOSP.TC ---
Today's Communication/Plan
-
Convert steroids to PO
Monitor glucose
AM labs -- recheck sodium tomorrow morning
Assessment / Plan
Assessment / Plan
Physical Exam
General: Well Developed, Well Nourished, No Apparent Distress and Comfortable
HEENT: Normocephalic, Atraumatic, Moist Mucous Membranes, Thrush (Thrush with gingival swelling), No Ptosis, PERRLA and Nose Appears Normal
Respiratory: Clear to Auscultation and Non Labored Respirations
Cardiac: Regular Rhythm and S1/S2
Breast: Deferred by me
GI: Soft, Nontender, Nondistended and Normal Bowel Sounds
Genito-urinary: No Costovertebral Tender
Musculoskeletal: No Clubbing, No Cyanosis and No Edema
Skin: Warm
Neuro: Awake and Alert
Psych: Calm
Impression:
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 Found to
have hyponatremia with�sodium of 118 seen by nephro nephrology. CT head was concerning of brain mass,�patient had MRI brain at [facility] on 12/13 which shows no brain mets obtained MRI brain with and without contrast showed Enhancing mass within the
lateral right orbit, arising in the region of the lateral rectus. This is suspicious for intraorbital metastatic lesion. This is however nonspecific, and other causes for intraorbital masses are considered, such as hemangioma. Comparison to any
obtainable previous examinations is advised.
Assessment/plan:
Acute metabolic encephalopathy.
Patient presented with confusion.
Possible secondary to hyponatremia.
CT head shows Enhancing mass within the lateral aspect of the right orbit, arising in the region of the lateral rectus muscle. In the clinical history, metastatic disease would be a consideration. This finding is however nonspecific, and other
causes for intraorbital mass such as hemangioma are also possible. If a previous imaging examinations including the orbits can be obtained, comparison would be helpful
patient had MRI brain at [facility] on 12/13/24 which shows no brain mets.
MRI brain with and without contrast showed Enhancing mass within the lateral right orbit, arising in the region of the lateral rectus. This is suspicious for intraorbital metastatic lesion. This is however nonspecific, and other causes for
intraorbital masses are considered, such as hemangioma. Comparison to any obtainable previous examinations is advised.
- Discussed in detail with radiology, discussed with patient and at bedside, images need to be compared to previous MRI on December 13, will be provided with CD with MRI images and follow-up with oncology at [facility] for
further recommendations.
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
-AM Cortisol level 0.4
-Hydrocortisone started on 01/28/25 -- was given IV Hydrocortisone -- switch to PO Hydrocortisone 20 mg in the morning and 10 mg later in the day
-Possibility that his adrenal failure is not due to autoimmune attack of his adrenal glands, but rather autoimmune attack of his pituitary gland -- but treatment is the same (Hydrocortisone)
-I called on 01/29/25 Dr. Karri Salcedo's office ([facility]) at [phone] and the district fire management officer there took my number and said I would expect a call back from Dr. Salcedo
Hyperglycemia
-Suspected from IV Hydrocortisone
-IV steroid is now changed to PO Hydrocortisone at a lower total equivalent dose
Symptomatic hyponatremia
etiology could be multifactorial secondary to Opdivo/Yervoy, decreased solute intake, SIADH from malignancy
-Mental status currently significantly improved, no focal neurological deficits
- Sodium 118, on presentation.
Appreciate nephrology input.
BMP every 6 hours or as recommended by nephrology
Sodium improving, possible discharge tomorrow
Left upper lobe consolidation, mild surrounding groundglass opacities in left upper lobe
- As seen on vision radiology report, not correlating clinically
Metastatic melanoma with metastasis to heart, stomach and lungs status post mediastinal lymph node resection on immunotherapy
- On immunotherapy with Opdivo and Yervoy
Essential hypertension
- Continue amlodipine
Hyperlipidemia
- Continue statin
Thyroid cancer status post thyroid resection
- Continue levothyroxine
Anxiety/depression
- Continue clonazepam, trazodone
Elevated intraocular pressure
- Continue latanoprost
CODE STATUS: Full code
DVT prophylaxis: SCDs. [place] (I communicated on 01/28/[address] Hedrick and in the setting of patient's Brain MRI findings, he agreed that it is okay to continue chemical DVT prophylaxis)
Diet: Regular diet
Family communication: Discussed with at bedside
Disposition: Continue to monitor BMP.
On 01/28/25 and 01/29/25, I spoke in-person with patient's extensively, and I answered all of her questions and concerns to satisfaction.
Anticipated Discharge: Within 24 hours
Subjective/Interval History
-
Date of Service: January 29, 2025
Patient was seen and examined. He was doing better today and denied any new symptoms.
Objective Data
-
Labs:
Laboratory Results
01/28/25 01/29/25
21:34 05:28
WBC 5.3
Hgb 12.0 L
Hct 32.9 L
Plt Count 279
Sodium 124 L 128 L
Potassium 4.5 4.9
Chloride 97 L 100
Carbon Dioxide 23 23
BUN 10 12
Creatinine 0.5 L 0.6 L
Glucose 224 H 150 H
Calcium 8.3 L 8.4
Vital Signs:
Vital Signs
Temp Pulse Resp BP Pulse Ox
97.9 F 85 19 106/58 96
01/29/25 07:00 01/29/25 07:00 01/29/25 07:00 01/29/25 07:00 01/29/25 07:00
I&O
01/28/25 01/29/25 01/30/25
06:59 06:59 06:59
Intake Total 600 / 600 240 / 240
Output Total 450 / 450
Balance 150 / 150 240 / 240
[2025-01-29] MEDS: MAGIC OR MIRACLE MOUTHWASH 5 ML PO ×3 (08:21→21:11)
[2025-01-29] MEDS: SOLU-CORTEF 50 MG IV (08:36)
[2025-01-29] MEDS: MYCOSTATIN ORAL SUSPENSION 10 ML PO ×4 (08:38→21:09)
[2025-01-29] MEDS: NORVASC 5 MG PO (08:39)
[2025-01-29] MEDS: LIPITOR 20 MG PO (08:40)
[2025-01-29] MEDS: XALATAN OPHTHALMIC SOLUTION 1 DROP BOTH EYES (08:41)
--- NOTE | 2025-01-29 10:22 | W.PN.ONC ---
Today's Communication / Plan
-
He is much improved following administration of hydrocortisone. I would recommend discharge on 20 mg in the morning and 10 mg in the evening. He will follow-up with his oncologist at the [facility].
As an aside, there is also a possibility that his adrenal failure is not due to autoimmune attack of his adrenal glands, but rather autoimmune attack of his pituitary gland. An ACTH stimulation test would have differentiated these 2. However, the
treatment is the same.
Impression
Impression
Metastatic melanoma, on immunotherapy, reportedly Opdivo and Yervoy
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
Plan
Plan
From my reading, the cortisol level of 0.4 is essentially diagnostic of adrenal insufficiency. I have begun him on hydrocortisone 100 mg IV bolus, followed by 50 mg twice daily. He can be converted to a physiologic regimen within the next day or
so.
I am not sure what to make of the small mass seen in the orbit. His tells me that the [facility] is comparing our study with a study done several weeks ago. No acute intervention is necessary.
Subjective/Objective
Subjective/Objective
He is feeling much better today. His confusion is gone according to his . Physical examination is unchanged.
Vital Signs:
Vital Signs
Temp Pulse Resp BP Pulse Ox
97.9 F 85 19 106/58 96
01/29/25 07:00 01/29/25 07:00 01/29/25 07:00 01/29/25 07:00 01/29/25 07:00
Lab Results:
Laboratory Data
WBC 5.3 10^3/uL (4.8-10.8) 01/29/25 05:28
Hgb 12.0 g/dL (13.0-18.0) L 01/29/25 05:28
Plt Count 279 10^3/uL (130-400) 01/29/25 05:28
eGFR > 60.00 01/29/25 05:28
Orders
Orders
Orders From Last 24 Hours
01/28/25 13:39
Hydrocortisone Sod Succinate [Solu-Cortef] 100 mg IV NOW STA
01/28/25 20:00
Hydrocortisone Sod Succinate [Solu-Cortef] 50 mg IV Q12
[2025-01-29 11:06] VITALS: BP 119/64
[2025-01-29 11:56] LABS: Glucose - Point of Care 191 mg/dl (70-99)
[2025-01-29] MEDS: NOVOLOG FLEXPEN-LOW RESISTANCE 1 UNITS SC ×2 (12:36→17:07)
[2025-01-29 14:05] VITALS: BMI 30.6
--- NOTE | 2025-01-29 14:35 | W.PN.NEPH.PH ---
Addendum entered and electronically signed by Karri Butler MD 01/29/25 14:39:
This is 01/28/25 note
Original Note:
Today's Communication / Plan
-
3%
Assessment/Plan
-
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
anxiety/depression, hyperlipidemia, glaucoma presenting for confusion.
Renal consult for sodium of 118.
The patient is alert and awake his was at the bedside helped with history he was told to drink water when he had a sodium of 125 earlier in the week per oncology when he was getting his infusion. He has been drinking a lot of Gatorade.
Impression.
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 Opdivo commonly associated with hyponatremia
Metastatic melanoma for possible metastatic lesion on MRI.
Thyroid cancer.
Oral thrush
Plan.
3% saline again today
serial BMP
could still consider samsca if Na fails to improve
-
-
Date of Service: January 29, 2025
CC / HPI / ROS
-
Chief Complaint:
hyponatremia
History of Present Illness:
Na 124
BP stable
lethargic
Review of Systems:
no CP/SOB
Labs
-
Labs:
WBC 5.3 10^3/uL (4.8-10.8) 01/29/25 05:28
RBC 3.87 10^6/uL (4.70-6.10) L 01/29/25 05:28
Hgb 12.0 g/dL (13.0-18.0) L 01/29/25 05:28
Hct 32.9 % (39.0-52.0) L 01/29/25 05:28
Plt Count 279 10^3/uL (130-400) 01/29/25 05:28
Sodium 128 mmol/L (135-145) L 01/29/25 05:28
Potassium 4.9 mmol/L (3.5-5.1) 01/29/25 05:28
Chloride 100 mmol/L (98-107) 01/29/25 05:28
Carbon Dioxide 23 mmol/L (22-30) 01/29/25 05:28
BUN 12 mg/dl (9-20) 01/29/25 05:28
Creatinine 0.6 mg/dL (0.7-1.3) L 01/29/25 05:28
eGFR > 60.00 01/29/25 05:28
Glucose 150 mg/dl (70-99) H 01/29/25 05:28
Calcium 8.4 mg/dl (8.4-10.2) 01/29/25 05:28
Albumin 3.1 g/dl (3.5-5.0) L 01/27/25 05:08
Physical Exam
-
Vital Signs:
Vital Signs
Temp Pulse Resp BP Pulse Ox
98.9F 85 16 128/69 93
01/28/25 01/28/25 01/28/25 01/28/25
Cardiovascular:: Regular rate and rhythm
Respiratory:: Bilateral: CTA
Lung Excursion:: Normal
Abdomen:: Nontender and Soft
Bowel Sounds:: Normal
Extremity Edema:: None: Bilateral:
--- NOTE | 2025-01-29 14:40 | W.PN.NEPH.PH ---
Today's Communication / Plan
-
follow BMP
Assessment/Plan
-
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
anxiety/depression, hyperlipidemia, glaucoma presenting for confusion.
Renal consult for sodium of 118.
The patient is alert and awake his was at the bedside helped with history he was told to drink water when he had a sodium of 125 earlier in the week per oncology when he was getting his infusion. He has been drinking a lot of Gatorade.
Impression.
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 Opdivo commonly associated with hyponatremia
Metastatic melanoma for possible metastatic lesion on MRI.
Thyroid cancer.
Oral thrush
Plan.
follow BMP
continue hydrocortisone
If Na stable or better tomorrow can be followed as outpatient
-
-
Date of Service: January 29, 2025
CC / HPI / ROS
-
Chief Complaint:
hyponatremia
History of Present Illness:
Na 128 after 3%
BP stable
now on HC for adrenal insufficiency
Review of Systems:
no CP/SOB
brighter
Labs
-
Labs:
WBC 5.3 10^3/uL (4.8-10.8) 01/29/25 05:28
RBC 3.87 10^6/uL (4.70-6.10) L 01/29/25 05:28
Hgb 12.0 g/dL (13.0-18.0) L 01/29/25 05:28
Hct 32.9 % (39.0-52.0) L 01/29/25 05:28
Plt Count 279 10^3/uL (130-400) 01/29/25 05:28
Sodium 128 mmol/L (135-145) L 01/29/25 05:28
Potassium 4.9 mmol/L (3.5-5.1) 01/29/25 05:28
Chloride 100 mmol/L (98-107) 01/29/25 05:28
Carbon Dioxide 23 mmol/L (22-30) 01/29/25 05:28
BUN 12 mg/dl (9-20) 01/29/25 05:28
Creatinine 0.6 mg/dL (0.7-1.3) L 01/29/25 05:28
eGFR > 60.00 01/29/25 05:28
Glucose 150 mg/dl (70-99) H 01/29/25 05:28
Calcium 8.4 mg/dl (8.4-10.2) 01/29/25 05:28
Albumin 3.1 g/dl (3.5-5.0) L 01/27/25 05:08
Physical Exam
-
Vital Signs:
Vital Signs
Temp Pulse Resp BP Pulse Ox
98 F 86 16 119/64 94
01/29/25 11:06 01/29/25 11:06 01/29/25 11:06 01/29/25 11:06 01/29/25 11:06
Cardiovascular:: Regular rate and rhythm
Respiratory:: Bilateral: Coarse
Lung Excursion:: Normal
Abdomen:: Nontender and Soft
Bowel Sounds:: Normal
Extremity Edema:: None: Bilateral:
[2025-01-29 14:58] VITALS: BP 124/61
[2025-01-29 16:46] LABS: Glucose - Point of Care 182 mg/dl (70-99)
[2025-01-29] MEDS: LOVENOX 40 MG SC (17:06)
[2025-01-29] MEDS: KLONOPIN 0.5 MG PO (21:08)
[2025-01-29 21:16] LABS: Glucose - Point of Care 143 mg/dl (70-99)
[2025-01-29 22:21] VITALS: BP 114/62
[2025-01-30 05:52] LABS: Hematocrit 32.0 % (39.0-52.0); Hemoglobin 11.3 g/dL (13.0-18.0); Mean Corp Hgb Conc. 35.3 g/dL (33.0-37.0); Mean Corpuscular Volume 86.0 fL (80.0-94.0); Platelet Count 306 10^3/uL (130-400); Red Cell Dist. Width 11.9 % (11.5-14.5)
[2025-01-30] MEDS: SYNTHROID 137 MCG PO (06:09)
[2025-01-30 06:52] LABS: Blood Urea Nitrogen 14 mg/dl (9-20); Calcium 8.1 mg/dl (8.4-10.2); Carbon Dioxide 24 mmol/L (22-30); Chloride 104 mmol/L (98-107); Estimated Creatinine Clearance 118 ml/min; Glucose 99 mg/dl (70-99); Potassium 4.3 mmol/L (3.5-5.1); Sodium 133 mmol/L (135-145); eGFR > 60.00
[2025-01-30 07:30] VITALS: BP 118/70
[2025-01-30 07:34] LABS: Glucose - Point of Care 100 mg/dl (70-99)
[2025-01-30] MEDS: MAGIC OR MIRACLE MOUTHWASH 5 ML PO (07:35)
[2025-01-30] MEDS: NOVOLOG FLEXPEN-LOW RESISTANCE SC ×2 (07:36→12:13)
[2025-01-30] MEDS: LIPITOR 20 MG PO (08:21)
[2025-01-30] MEDS: NORVASC 5 MG PO (08:21)
[2025-01-30] MEDS: CORTEF 20 MG PO (08:21)
[2025-01-30] MEDS: MYCOSTATIN ORAL SUSPENSION 10 ML PO ×2 (08:21→14:09)
[2025-01-30] MEDS: XALATAN OPHTHALMIC SOLUTION 1 DROP BOTH EYES (08:21)
--- NOTE | 2025-01-30 08:23 | W.PN.HOSP.TC ---
Today's Communication/Plan
-
Discharge today
Assessment / Plan
Assessment / Plan
Physical Exam
General: Well Developed, Well Nourished, No Apparent Distress and Comfortable
HEENT: Normocephalic, Atraumatic, Moist Mucous Membranes
Respiratory: Clear to Auscultation Bilaterally
Cardiac: Regular Rhythm and S1/S2
GI: Soft, Nontender, Nondistended and Normal Bowel Sounds
Musculoskeletal: No Cyanosis and No Edema
Skin: Warm. Dry.
Neuro: Awake and Alert
Psych: Calm
Impression:
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 Found to
have hyponatremia with�sodium of 118 seen by nephro nephrology. CT head was concerning of brain mass,�patient had MRI brain at [facility] on 12/13 which shows no brain mets obtained MRI brain with and without contrast showed Enhancing mass within the
lateral right orbit, arising in the region of the lateral rectus. This is suspicious for intraorbital metastatic lesion. This is however nonspecific, and other causes for intraorbital masses are considered, such as hemangioma. Comparison to any
obtainable previous examinations is advised.
Assessment/Plan:
Acute metabolic encephalopathy.
Patient presented with confusion.
Possible secondary to hyponatremia.
CT head shows Enhancing mass within the lateral aspect of the right orbit, arising in the region of the lateral rectus muscle. In the clinical history, metastatic disease would be a consideration. This finding is however nonspecific, and other
causes for intraorbital mass such as hemangioma are also possible. If a previous imaging examinations including the orbits can be obtained, comparison would be helpful
patient had MRI brain at [facility] on 12/13/24 which shows no brain mets.
MRI brain with and without contrast showed Enhancing mass within the lateral right orbit, arising in the region of the lateral rectus. This is suspicious for intraorbital metastatic lesion. This is however nonspecific, and other causes for
intraorbital masses are considered, such as hemangioma. Comparison to any obtainable previous examinations is advised.
- Discussed in detail with radiology, discussed with patient and at bedside, images need to be compared to previous MRI on December 13, will be provided with CD with MRI images and follow-up with oncology at [facility] for
further recommendations.
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
-AM Cortisol level 0.4
-Hydrocortisone started on 01/28/25 -- was given IV Hydrocortisone -- switched to PO Hydrocortisone 20 mg in the morning and 10 mg later in the day
-Possibility that his adrenal failure is not due to autoimmune attack of his adrenal glands, but rather autoimmune attack of his pituitary gland -- but treatment is the same (Hydrocortisone)
-I called on 01/29/25 Dr. Karri Salcedo's office ([facility]) at [phone] and the office technician there took my number and said I would expect a call back from Dr. Salcedo
-Patient's will follow-up with patient's card assembler Dr. Salcedo
Hyperglycemia - SIGNIFICANTLY IMPROVED AFTER SWITCHING TO ORAL, LOWER DOSE HYDROCORTISONE
-Suspected from IV Hydrocortisone
-IV steroid is now changed to PO Hydrocortisone at a lower total equivalent dose
Symptomatic hyponatremia
etiology could be multifactorial secondary to Opdivo/Yervoy, decreased solute intake, SIADH from malignancy
-Mental status currently significantly improved, no focal neurological deficits
- Sodium 118, on presentation.
Appreciate nephrology input.
Recheck BMP outpatient
Left upper lobe consolidation, mild surrounding groundglass opacities in left upper lobe
Focal consolidation in the superior lateral aspect of left upper lobe lung, with adjacent linear densities -- appearance suggests the possibility of previous radiation therapy
Slightly enlarged mediastinal lymph nodes as well as left hilar and infrahilar lymph nodes, nonspecific, and could represent inflammatory or neoplastic lymph nodes.
- As seen on vision radiology report, not correlating clinically
Metastatic melanoma with metastasis to heart, stomach and lungs status post mediastinal lymph node resection on immunotherapy
- On immunotherapy with Opdivo and Yervoy
Essential hypertension
- Continue amlodipine
Hyperlipidemia
- Continue statin
Thyroid cancer status post thyroid resection
- Continue levothyroxine
Anxiety/depression
- Continue clonazepam, trazodone
Elevated intraocular pressure
- Continue latanoprost
CODE STATUS: Full code
DVT prophylaxis: SCDs. Aramx (I communicated on 01/28/[address] Hedrick and in the setting of patient's Brain MRI findings, he agreed that it is okay to continue chemical DVT prophylaxis)
Diet: Regular diet
Family communication: Discussed with at bedside
Disposition: Continue to monitor BMP.
On 01/28/25, 01/29/25 and 01/30/25, I spoke in-person with patient's extensively, and I answered all of their questions and concerns to satisfaction.
More than 30 minutes spent in discharge including
Final examination of the patient
Summarizing hospital stay
Instructions for continuing care to all relevant caregivers
Preparation of discharge records, prescriptions, and referral forms
Total time spent (in minutes): 41
Anticipated Discharge: Today
Subjective/Interval History
-
Date of Service: January 30, 2025
Patient was seen and examined. He was doing okay, no new significant symptoms or complaints.
Objective Data
-
Labs:
Laboratory Results
01/30/25
05:30
WBC 7.6
Hgb 11.3 L
Hct 32.0 L
Plt Count 306
Sodium 133 L
Potassium 4.3
Chloride 104
Carbon Dioxide 24
BUN 14
Creatinine 0.6 L
Glucose 99
Calcium 8.1 L
Vital Signs:
Vital Signs
Temp Pulse Resp BP Pulse Ox
98.3 F 81 16 118/70 96
01/30/25 07:30 01/30/25 07:30 01/30/25 07:30 01/30/25 07:30 01/30/25 07:30
I&O
01/29/25 01/30/25 01/31/25
06:59 06:59 06:59
Intake Total 240 / 240 540 / 540
Balance 240 / 240 540 / 540
[2025-01-30 12:03] LABS: Glucose - Point of Care 113 mg/dl (70-99)
--- NOTE | 2025-01-30 12:09 | W.PN.NEPH.PH ---
Today's Communication / Plan
-
Okay for discharge from renal perspective
Assessment/Plan
-
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
anxiety/depression, hyperlipidemia, glaucoma presenting for confusion.
Renal consult for sodium of 118.
The patient is alert and awake his was at the bedside helped with history he was told to drink water when he had a sodium of 125 earlier in the week per oncology when he was getting his infusion. He has been drinking a lot of Gatorade.
Impression.
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 Opdivo commonly associated with hyponatremia
Metastatic melanoma for possible metastatic lesion on MRI.
Thyroid cancer.
Oral thrush
Plan.
follow BMP
continue hydrocortisone
Okay for discharge follow-up outpatient 2 to 4 weeks with a BMP in 5 days
Fluid restrict
Will need to see endocrinology outpatient
Discussed with the patient and primary hospitalist
-
-
Date of Service: January 30, 2025
CC / HPI / ROS
-
Chief Complaint:
hyponatremia
History of Present Illness:
Na 133 after 3%
BP stable
now on HC for adrenal insufficiency
Review of Systems:
no CP/SOB
brighter
Labs
-
Labs:
WBC 7.6 10^3/uL (4.8-10.8) 01/30/25 05:30
RBC 3.72 10^6/uL (4.70-6.10) L 01/30/25 05:30
Hgb 11.3 g/dL (13.0-18.0) L 01/30/25 05:30
Hct 32.0 % (39.0-52.0) L 01/30/25 05:30
Plt Count 306 10^3/uL (130-400) 01/30/25 05:30
Sodium 133 mmol/L (135-145) L 01/30/25 05:30
Potassium 4.3 mmol/L (3.5-5.1) 01/30/25 05:30
Chloride 104 mmol/L (98-107) 01/30/25 05:30
Carbon Dioxide 24 mmol/L (22-30) 01/30/25 05:30
BUN 14 mg/dl (9-20) 01/30/25 05:30
Creatinine 0.6 mg/dL (0.7-1.3) L 01/30/25 05:30
eGFR > 60.00 01/30/25 05:30
Glucose 99 mg/dl (70-99) 01/30/25 05:30
Calcium 8.1 mg/dl (8.4-10.2) L 01/30/25 05:30
Albumin 3.1 g/dl (3.5-5.0) L 01/27/25 05:08
Physical Exam
-
Vital Signs:
Vital Signs
Temp Pulse Resp BP Pulse Ox
98.3 F 81 16 118/70 96
01/30/25 07:30 01/30/25 08:21 01/30/25 07:30 01/30/25 08:21 01/30/25 07:30
Cardiovascular:: Regular rate and rhythm
Respiratory:: Bilateral: Coarse
Lung Excursion:: Normal
Abdomen:: Nontender and Soft
Bowel Sounds:: Normal
Extremity Edema:: None: Bilateral:
--- NOTE | 2025-01-30 13:48 | W.DCSUMMARY ---
Discharge Summary
Discharge Data
Date of Admission: 01/26/25
Date of Discharge: 01/30/25
Total time spent discharging patient (in min): 41
-
Pending Results: No
Hospital Course
74-year-old male past medical history of metastatic melanoma with metastasis to heart, stomach and lungs status post mediastinal lymph node resection on immunotherapy Opsonny and Whit, thyroid cancer status post thyroid resection, hypertension,
anxiety/depression, hyperlipidemia, glaucoma presented with confusion. Patient was found to a serum sodium of 118. CT head showed enhancing mass within the lateral aspect of the right orbit, arising in the region of the lateral rectus muscle. It was
noted that patient had a brain MRI in December 2024, and that MRI Brain showed no brain metastases. Nephrology was consulted and patient received 3% saline. Patient's serum cortisol was found to be 0.4, and serum TSH was 2.74. Patient was thought to
have either primary or secondary adrenal insufficiency and started on Hydrocortisone IV which was later switched to oral hydrocortisone. Patient's serum sodium increased and his confusion and symptoms improved significantly. Oncology was consulted
and they were not sure what to make of the small mass seen in the orbit in the neuroimaging that was done. Patient's condition improved and he was stable for discharge with close outpatient follow-up. I spoke over the phone with patient's
major account representative Dr. Karri Salcedo, and explained to him patient's hospital course, and he agreed with the management plan with the hydrocortisone. Patient and his said they will closely follow-up with their outpatient physicians within 1
week or less.
Discharge Plan
-
Patient Disposition: Home (Routine Discharge)
Discharge Diagnosis/Procedures: Acute metabolic encephalopathy - resolved with correction of hyponatremia and after starting hydrocortisone
Symptomatic Hyponatremia
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
Hyperglycemia - SIGNIFICANTLY IMPROVED AFTER SWITCHING TO ORAL, LOWERING TOTAL DOSE OF HYDROCORTISONE
Left upper lobe consolidation, mild surrounding ground-glass opacities in left upper lobe
Focal consolidation in the superior lateral aspect of left upper lobe lung, with adjacent linear densities -- appearance suggests the possibility of previous radiation therapy
Slightly enlarged mediastinal lymph nodes as well as left hilar and infra-hilar lymph nodes, nonspecific, and could represent inflammatory or neoplastic lymph nodes
Metastatic melanoma with metastasis to heart, stomach and lungs status post mediastinal lymph node resection on immunotherapy
Essential hypertension
Hyperlipidemia
Thyroid cancer status post thyroid resection
Anxiety/depression
Elevated intraocular pressure
MRI Brain Results (as per radiologist's report):
'FINDINGS: MRI of the brain is performed, images obtained prior to and following intravenous administration of gadolinium-based contrast agent.
Within the lateral aspect of the right orbit, arising in the region of the lateral rectus, there is an enhancing mass, which also demonstrates decreased signal intensity on T2 gradient echo sequence. This mass measures 1.4 cm craniocaudal by 1.2 cm
transverse by 1.2 cm AP. Given the clinical history, this is suspicious for a metastatic lesion. The mass is however nonspecific, and could represent a different cause for intraorbital mass, such as hemangioma.
Comparison to any previous obtainable imaging of the brain/orbits with likely be helpful.
No other intraorbital masses are identified.
There is evidence of previous bilateral cataract surgery.
No focal area of abnormal restricted diffusion is identified, with no evidence for a focal area of infarction.
There is no evidence of intracranial mass lesion or mass effect, with no midline shift.
There is no evidence for metastatic disease to the brain, with no focal area of abnormal enhancement.
The dural venous sinuses appear clear.
Craniocervical junction appears normal with no evidence for Chiari malformation. There appears to be mild compression of the anterior cervical spinal cord at C3-4 from posterior disc/osteophyte complex.
Pituitary gland appears within normal limits. The infundibulum is midline.
Mild age expected atrophy in this 74-year-old.
Slight prominence of extra-axial CSF in the anterior left middle cranial fossa, suggesting a small arachnoid cyst. Within the adjacent left temporal lobe, on image 10 of series 601, there is an 8 mm round focus of CSF density, with subtle
surrounding increased FLAIR signal, as seen on images 9 and 10 of series 801. This could represent intracranial extension of arachnoid cyst. Given the surrounding FLAIR signal, a small focus of old infarction could also be considered.
Minimal patchy mucosal thickening of the ethmoid sinuses. Moderate peripheral mucosal thickening of the left maxillary sinus. Minimal peripheral mucosal thickening of the right maxillary sinus. The sphenoid sinuses are clear.
The mastoid air cells appear clear.
IMPRESSION: Enhancing mass within the lateral right orbit, arising in the region of the lateral rectus. This is suspicious for intraorbital metastatic lesion. This is however nonspecific, and other causes for intraorbital masses are considered, such
as hemangioma. Comparison to any obtainable previous examinations is advised.
No evidence for metastatic disease to the brain.
Prominence of extra-axial CSF in the anterior aspect of the left middle cranial fossa, suggesting a small arachnoid cyst.
Within the adjacent left temporal lobe, 8 mm round focus of CSF density with subtle surrounding increased FLAIR signal. Etiology for this finding is uncertain, possibly intracranial extension of arachnoid cyst. Differential consideration of a small
focus of old infarction. No evidence for abnormal enhancement in this region.
Paranasal sinus disease as described.'
Condition: Good
Diet: Restrict fluids to 48 oz
Activity: As tolerated
Blood Work: CBC and BMP with your primary care provider's office within the next 5 days (your PCP's office can directly order these labs and send them to an outpatient lab facility)
Activity Restrictions/Additional Instructions:
Call your major account representative and oncologist latest by tomorrow to update them on patient's hospitalization.
The nurse and community director in the hospital can send all of the records from this hospitalization to your oncologist and major account representative.
CBC and BMP with your primary care provider's office within the next 5 days (your PCP's office can directly order these labs and electronically send them to an outpatient lab facility)
Instructions: Hydrocortisone (Systemic), Low blood sugar in people with diabetes, Low blood sugar in people without diabetes, High blood sugar in adults - ED discharge instructions, Low blood sugar in adults - ED discharge instructions
Referrals:
Gallo Gamez DO [Active, Nephrology] - in less than 1 week
Referral Note: Hospital Follow-Up, patient and patient's requested close follow-up with packager
Matias Hinton MD [Family Provider, Internal Medicine] - in three to four days
Referral Note: Needs CBC and BMP following hospitalization
Additional Discharge Medication Instructions: Hydrocortisone is a new medication.
Nystatin is a new medication for thrush.
Ondansetron and Trazodone have been stopped due to QTc prolongation.
Prescriptions:
New
hydrocortisone 10 mg Tablet
20 mg PO DAILY Qty: 60 1RF
Rx Instructions:
To to be taken daily, in the morning
hydrocortisone 10 mg Tablet
10 mg PO DAILY@1500 Qty: 30 1RF
Rx Instructions:
To be taken 2 hours after lunch, around 3 pm everyday
nystatin 100,000 unit/mL Suspension
6 ml PO QID 4 Days Qty: 96 0RF
Rx Instructions:
SWISH AND SPIT
Continued
latanoprost 0.005 % Drops
1 drp BOTH EYES HS
atorvastatin 20 mg Tablet
20 mg PO DAILY
clonazepam 1 mg Tablet
1 mg PO BID PRN (Reason: anxiety)
amlodipine 5 mg Tablet
5 mg PO DAILY
levothyroxine 137 mcg/mL Solution
137 mcg PO DAILY@06
Discontinued
trazodone 50 mg Tablet
50 mg PO HS
ondansetron 4 mg Tablet,Disintegrating
4 mg PO Q8H PRN (Reason: nausea)
mometasone 0.1 % Cream
1 applic TOPICAL BID
Discharge Orders:
Discharge Patient (As Directed); Ordered 01/30/25
Ordered By: Timo Vilchis
Discharge Date and Time
Discharge Date/Time: 01/30/25 15:13
Print Language: UPPER SORBIAN
--- NOTE | 2025-01-30 13:59 | CM ---
CM spoke with Ovi to discuss discharge needs. Ovi and his advised that no post-hospital resources are needed at this time. Pt anticipates returning home with his who will drive him. VN offered and declined.
Pt requested discharge paperwork to be faxed to his oncologist, Odette Junior.
Insurance Administrator notified and will send discharge paperwork as requested.
Plan: Discharge to home with . Pt denies post-hospital services.
[2025-01-30] MEDS: CORTEF 10 MG PO (14:10)
== END 2025-01-30 15:13 | disposition home or self-care (01) | DRG 643 ==
LOC: 3 WEST ACU 23:13
PROVIDERS: General Practice; Nurse Practitioner; Nurse Practitioner Family; Specialist; ADMITTING PHYSICIAN Hospitalist; ATTENDING PHYSICIAN Hospitalist; CONSULT PHYSICIAN Internal Medicine Hematology & Oncology; CONSULT PHYSICIAN Internal Medicine Nephrology; EMERGENCY PHYSICIAN Emergency Medicine; FAMILY PHYSICIAN Internal Medicine
DX: E22.2 Syndrome of inappropriate secretion of antidiuretic hormone (principal); G93.41 Metabolic encephalopathy; C78.00 Secondary malignant neoplasm of unspecified lung; C78.89 Secondary malignant neoplasm of other digestive organs; C79.89 Secondary malignant neoplasm of other specified sites; E27.40 Unspecified adrenocortical insufficiency; E27.3 Drug-induced adrenocortical insufficiency; B37.0 Candidal stomatitis; R47.01 Aphasia; Z85.850 Personal history of malignant neoplasm of thyroid; Z92.3 Personal history of irradiation; F32.A Depression, unspecified; F41.9 Anxiety disorder, unspecified; C43.9 Malignant melanoma of skin, unspecified; T45.AX5A Adverse effect of immune checkpoint inhibitors and immunostimulant drugs, initial encounter; I10 Essential (primary) hypertension; H40.059 Ocular hypertension, unspecified eye; D18.00 Hemangioma unspecified site; E78.00 Pure hypercholesterolemia, unspecified; Z79.890 Hormone replacement therapy; Z79.899 Other long term (current) drug therapy
CPT/HCPCS: 0042T; 70450; 70496; 70498; 70553; 80048; 80053; 81003; 82533; 82962; 83930; 83935; 84300; 84443; 84484; 84550; 85025; 85027; 93005; 94640; 96360; 96361; 99291; A9575; Q9967